=== PATIENT | female | born 2000 | race Caucasian/White ===

== ENCOUNTER → 2024-02-14 | Outpatient (CLI) | payer BC ==
[2024-02-14 10:48] LABS: BASO # 0.03 K/mm3 (0.02-0.10); EOS # 0.23 K/mm3 (0.04-0.40); EOS % 5.5 % (1.0-5.0); HEMATOCRIT 45.5 % (37.0-47.0); LYMPH# 1.52 K/mm3 (1.50-4.00); MEAN CELL VOLUME 86 fl (78-100); MEAN CORPUSCULAR HEMOGLOBIN 28 pg (27-31); MEAN CORPUSCULAR HGB CONC 33 g/dL (33-37); MEAN PLATELET VOLUME 9.6 fl (7.4-10.4); MONO # 0.67 K/mm3 (0.20-0.80); NEU # 1.71 K/mm3 (1.40-6.50); PLATELET COUNT 194 K/mm3 (130-400); RED BLOOD COUNT 5.32 M/mm3 (4.10-5.30); WHITE BLOOD COUNT 4.2 K/mm3 (4.8-10.8)
[2024-02-14 10:55] LABS: ALBUMIN 4.4 g/dL (3.5-5.0)
[2024-02-14 10:56] LABS: CALCIUM 9.5 mg/dL (8.3-10.5)
[2024-02-14 10:58] LABS: TOTAL PROTEIN 7.6 g/dL (6.4-8.3)
[2024-02-14 10:59] LABS: TOTAL BILIRUBIN 0.4 mg/dL (0.2-1.2)
[2024-02-15 00:38] LABS: FOLLICLE STIMULATING HORMONE 2.5 mIU/mL (()); LUTENIZING HORMONE 1.4 mIU/mL (())
== END ==
LOC: LAB 10:31
PROVIDERS: Nurse Practitioner
DX: Z00.00 Encounter for general adult medical examination without abnormal findings (principal); R63.5 Abnormal weight gain; M25.50 Pain in unspecified joint; E28.2 Polycystic ovarian syndrome; R19.7 Diarrhea, unspecified; M54.50 Low back pain, unspecified